=== PATIENT | female | born 1980 | race American Indian/Alaskan Native ===

== ENCOUNTER 2021-06-29 12:53 | Outpatient (CLI) | payer BC ==
--- NOTE | 2021-06-30 07:43 | Mammography Report ---
DIGITAL SCREENING MAMMOGRAM WITH CAD, 06/29/2021 CLINICAL INFORMATION / INDICATION: Routine screening mammography. SCREENING MAMMO Z12.31 TECHNIQUE: Digital bilateral 2D mammography was obtained in the craniocaudal and mediolateral obliqu e projections. This examination was interpreted with the benefit of Computer-Aided Detection analysis . COMPARISON: None FINDINGS: Breast Density: The breasts are heterogeneously dense, which may obscure small masses. No dominant mass, suspicious calcifications, or architectural distortion in either breast. 9 mm nodule in the mid left breast best seen on the exaggerated cc view located approximately 7 cm fr om the nipple. IMPRESSION: Left breast finding as above. Recommend follow-up ultrasound. Follow up recommendation: Ultrasound BI-RADS Category 0: Incomplete. Needs additional imaging evaluation and/or prior mammograms for allen linn. A "normal" or negative report should not discourage follow up or biopsy of a clinically significant f inding. A written summary of these findings will be mailed to the patient. The patient will be entered into a mammography reporting system which will generate a reminder letter for the patient's next appointmen t at the appropriate interval. The [employer] recommends yearly mammograms starting at age 40 and continuing as l debra as a woman is in good health. Breast MRI is recommended for women with an approximate 20-25% or greater lifetime risk of breast cancer, including women with a strong family history of breast or ova kamilah cancer or who have been treated for Hodgkin's disease. Signer Name: Magno Butler MD Signed: 06/30/2021 7:39 AM Workstation Name: [id number]
== END 2021-06-29 12:54 | disposition home or self-care (01) ==
LOC: SPVWC 12:53
PROVIDERS: ATTEND Obstetrics & Gynecology
DX: Z12.31 Encounter for screening mammogram for malignant neoplasm of breast (principal); N63.20 Unspecified lump in the left breast, unspecified quadrant
CPT/HCPCS: 77067

== ENCOUNTER 2021-08-09 13:03 | Outpatient (CLI) | payer BC ==
--- NOTE | 2021-08-10 17:54 | Mammography Report ---
LEFT DIGITAL DIAGNOSTIC MAMMOGRAM WITH CAD , 08/09/2021 LEFT LIMITED BREAST ULTRASOUND CLINICAL INFORMATION / INDICATION: Abnormal screening mammogram. Screening recall of the left breast for nodular density. TECHNIQUE: Digital mammographic imaging was performed. Spot compression views were obtained. Limited ultrasound was performed. This examination was interpreted with the benefit of Computer-Aided Detecti on (CAD) analysis. COMPARISON: Screening mammogram, 06/29/2021 FINDINGS: Breast Density: The breasts are heterogeneously dense, which may obscure small masses. MAMMOGRAPHIC FINDINGS: Spot compression views of the left breast demonstrate the previously noted asy mmetry in the lateral left breast essentially resolves. No suspicious mammographic finding is identif ied. ULTRASOUND FINDINGS: Targeted ultrasound evaluation was performed of the area of interest. Sonograp hic evaluation of the lateral left breast demonstrates an oval hypoechoic nodule with posterior throu gh transmission measuring 0.7 x 0.4 cm at the 3:00 position 7 cm from the nipple. This appears to cor respond to the density seen on the mammogram. There is no evidence of suspicious solid mass or shadow ing. IMPRESSION: 1. Oval nodule in the left breast with benign features which most likely represents a mildly complica cecilia cyst or lymph node. No suspicious mammographic or sonographic finding is identified. Because the patient has no prior breast imaging for comparison, a six-month follow-up left mammogram and ultrasou nd is recommended to confirm stability. Follow up recommendation: Short term follow up in 6 months. BI-RADS Category 3: Probably Benign. Followup in 6 months. A "normal" or negative report should not discourage follow up or biopsy of a clinically significant f inding. A written summary of these findings will be mailed to the patient. The patient will be entered into a mammography reporting system which will generate a reminder letter for the patient's next appointmen t at the appropriate interval. According to the [employer], yearly mammograms are recommended starting at age 40 and continuing as long as a woman is in good health. Breast MRI is recommended for women with an genia roximately 20-25% or greater lifetime risk of breast cancer, including women with a strong family his tory of breast or ovarian cancer and women who have been treated for Hodgkin's disease. Signer Name: Shani Logan MD Signed: 08/10/2021 5:50 PM Workstation Name: [email or web address]
== END 2021-08-09 13:04 | disposition home or self-care (01) ==
LOC: SPVWC 13:03
PROVIDERS: ATTEND Obstetrics & Gynecology
DX: N63.21 Unspecified lump in the left breast, upper outer quadrant (principal); R92.8 Other abnormal and inconclusive findings on diagnostic imaging of breast